=== PATIENT | female | born 1985 | race Caucasian/White ===

== ENCOUNTER 2020-06-11 06:53 | Outpatient (NON) | payer BC, SELFPAY ==
[2020-06-12 23:02] LABS: SARS-CoV-2 RNA PCR Positive
== END 2020-06-11 06:54 ==
PROVIDERS: PCP Family Medicine; Visit Provider Nurse Practitioner Family
DX: U07.1 COVID-19 (principal)
CPT/HCPCS: 87635; C9803; U0003